=== PATIENT | male | born 1965 | race Caucasian/White ===

== ENCOUNTER → 2016-03-23 | Day surgery (SDC) | payer BC, OTHER ==
[~2016-03-23] MED LIST: Buffered Lidocaine 1% SYR 3ML* 3 ML/SYR SYRINGE INTRADERM ONE; Buffered Lidocaine 1% SYR 3ML* 3 ML/SYR SYRINGE ONE; DiMENhydriNATE IV* 50 MG/ML VIAL IV PUSH PRN; HYDROcodone/ACETAMIN 5-325 MG* 1 TAB PO PRN; Lidocaine 1% INJ* 10 MG/ML 30 ML SDV ONE; Midazolam* 1 MG/ML 5 ML VIAL (5 MG) ONE; Ondansetron INJ* 2 MG/ML VIAL IV PRN; Propofol* 10 MG/ML 20 ML BTL IV PUSH ONE; fentaNYL* 50 MCG/ML 2 ML VIAL (100 MCG VIAL) IV PRN; fentaNYL* 50 MCG/ML 2 ML VIAL (100 MCG VIAL) ONE; oxyCODONE TAB* 5 MG TAB PO PRN
[2016-03-23 16:21] VITALS: BP 119/67
--- NOTE | 2016-03-24 02:27 | OP ---
DATE OF OPERATION: 03/23/16 [facility] DATE OF : 61 SURGEON: Dr. Suarez. DATABASE TECHNICIAN: LIZETT Larson ANESTHESIOLOGIST: Edgar Jack MD ANESTHESIA: Local MAC. PRE-OP DIAGNOSES: 1. Right carpal tunnel syndrome. 2. Right trigger thumb. 3. Right small finger trigger finger. POST-OP DIAGNOSIS: 1. Right carpal tunnel syndrome. 2. Right trigger thumb. 3. Right small finger trigger finger. OPERATIVE PROCEDURE: 1. Right small finger trigger release. 2. Right trigger thumb release. 3. Right carpal tunnel release. ESTIMATED BLOOD LOSS: Zero. TOURNIQUET TIME: About 15 minutes. INDICATIONS FOR PROCEDURE: Ismael is a 51-year-old who has numbness and tingling in the median nerve distribution of his right hand. He previously had a left carpal tunnel release with very good result. He also has trigger and locking of his right thumb and small finger and presents for release of these trigger fingers. DESCRIPTION OF PROCEDURE: The patient was brought to the operating room, was given a sedation anesthetic and a local infiltration of total of 20 cc of 1% plain lidocaine in the palm of his right hand. The skin of his right hand and forearm was prepped and dapped in the usual sterile fashion. The hand and forearm were exsanguinated and the tourniquet elevated to 250 mmHg. A transverse incision was made centered over the A1 anastasia of the right small finger. We dissected bluntly through the subcutaneous tissue. The digital neurovascular bundles were retracted and the A1 anastasia was incised longitudinally completely releasing the tendons, which were in good condition. The wound was irrigated and skin edges reapproximated with a 4-0 nylon suture. Next, a transverse incision was made centered over the A1 anastasia of the right thumb. We dissected bluntly through the subcutaneous tissue. The digital neurovascular bundles were retracted and the A1 anastasia incised longitudinally completely releasing the FPL tendon, which was in good condition. The wound was irrigated and skin edges reapproximated with 4-0 nylon suture. Next, a longitudinal incision was made in the palm in line with the ring finger. We dissected sharply through the subcutaneous tissue down to the transverse carpal ligament. The ligament was divided sharply with the knife and then more proximally with the scissors. The nerve was dissected free from the surrounding tissue and there was an area of moderate compression on the mid portion of the ligament. The wound was irrigated and skin edges reapproximated with 4-0 nylon suture. The wounds were dressed with Xeroform, 4x4, Webril, and an Alberto wrap. The patient tolerated the procedure well and was brought to the recovery room in good condition. [id number]/[facility] #: [id number] MTDD
== END | disposition home or self-care (01) ==
LOC: OREAST 12:32
PROVIDERS: ATTEND Orthopaedic Surgery
DX: G56.01 Carpal tunnel syndrome, right upper limb (principal); M65.311 Trigger thumb, right thumb; M65.351 Trigger finger, right little finger; F17.200 Nicotine dependence, unspecified, uncomplicated; Z85.07 Personal history of malignant neoplasm of pancreas; Z79.891 Long term (current) use of opiate analgesic
CPT/HCPCS: J2250; J2704; J3010

== ENCOUNTER → 2016-06-23 09:35 | Day surgery (SDC) | payer BC ==
[~2016-06-23 09:35] MED LIST changes: +Acetaminophen TAB* 325 MG PO PRN; -Buffered Lidocaine 1% SYR 3ML* 3 ML/SYR SYRINGE INTRADERM ONE; -Buffered Lidocaine 1% SYR 3ML* 3 ML/SYR SYRINGE ONE; +Buffered Lidocaine 1% SYRIN* 3 ML/SYR SYRINGE INTRADERM ONE; +Dexamethasone IV* 4 MG/ML 1 ML (4 MG) ONE; +Famotidine IV* 10 MG/ML 2 ML (20 mg) ONE; +HYDROcodone/ACETAMIN 5-325 MG* 1 TAB ONE; +HYDROmorphone* 1 MG/ML 1 ML SYR IV PRN; +HYDROmorphone* 2 MG/ML 1 ML SYR ONE; +Levalbuterol 0.63MG/3ML NEB INH PRN; -Lidocaine 1% INJ* 10 MG/ML 30 ML SDV ONE; +Lidocaine 1% MPF wEPI 200,000* 30 ML SDV ONE; +Lidocaine 2% PF* 5 ML VIAL ONE; +Midazolam* 1 MG/ML 2 ML VIAL (2 MG) ONE; -Midazolam* 1 MG/ML 5 ML VIAL (5 MG) ONE; +NS 0.9% 1000 ML* 1,000 ML IV SCH; +PROCHLORPERAZINE INJ 5 MG/ML 2 ML VIAL IV PRN; +Rocuronium* 10 MG/ML VIAL ONE; +ceFAZolin 1 GM in Dextrose (*) 1 GM/50 ML BAG IVPB ONE; -fentaNYL* 50 MCG/ML 2 ML VIAL (100 MCG VIAL) IV PRN; -fentaNYL* 50 MCG/ML 2 ML VIAL (100 MCG VIAL) ONE; +metroNIDAZOLE IV 500 MG/100ML* 500 MG/100 ML BAG IVPB ONE; -oxyCODONE TAB* 5 MG TAB PO PRN
[2016-06-23 13:53] VITALS: BP 129/68
--- NOTE | 2016-06-24 03:00 | OP ---
DATE OF OPERATION: 06/23/16 [facility] DATE OF : 61 SURGEON: Krishna Andrew MD WOODWORKING BENCH CARPENTER: Triston Kumar MD ANESTHESIOLOGIST: Dr. Bond ANESTHESIA: General endotracheal anesthesia. PRE-OP DIAGNOSIS: Metastatic cancer under the left neck. POST-OP DIAGNOSIS: Metastatic cancer under the left neck. OPERATIVE PROCEDURE: Excision of the left neck cancer with a deep dissection. COMPLICATIONS: None. DISPOSITION: Good. ESTIMATED BLOOD LOSS: Minimum. SPECIMEN: Left neck mass and then we did a superior muscle margin. DESCRIPTION OF PROCEDURE: The patient was taken to the operating room, placed in a supine position on the operating table, general anesthesia induced, and he was orotracheally intubated. Head was extended. The cancer was deep lower neck over the anterior border of the trapezius muscle. The incision was demarcated and injected with 1% lidocaine with 1:200,000 epinephrine. He was prepped with Betadine and draped in a sterile fashion. The incision was made to the skin. We did a systematic dissection around the cancer. It was nondescript and appeared to be invading some muscle, which was the anterior border of the trapezius. The spinal accessory nerve was found at its lateral portion and dissected inferiorly and posteriorly preserving it. We went inferiorly around the cancer exposing the omohyoid muscle, came over the omohyoid muscle anteriorly to the internal jugular vein, brought the specimen off the internal jugular vein down on to the floor of the neck posteriorly. We had to resect some of the trapezius muscle with the specimen and we were able to remove it by doing dissection with either cautery bipolar or the ligature with tying vessels as needed. This was sent in formalin. There was a firm spot in the muscle just superior to the dissection, which might have just been from the ligature, but we decided to take a piece of this for margin as well. Hemostasis was ensured and it was irrigated with copious normal saline. The skin was closed with 3-0 Polysorb deep dermal sutures and a 4-0 Vicryl Rapide running subcuticularly, Mastisol, and Steri-Strips. The patient tolerated the procedure well. No complications. Transferred to recovery room in stable condition. [id number]/[facility] #: [id number] [facility]
== END | disposition home or self-care (01) ==
LOC: OR 09:35
PROVIDERS: ATTEND Otolaryngology
DX: C49.0 Malignant neoplasm of connective and soft tissue of head, face and neck (principal); F17.210 Nicotine dependence, cigarettes, uncomplicated; K22.70 Barrett's esophagus without dysplasia; C25.9 Malignant neoplasm of pancreas, unspecified
CPT/HCPCS: 88305; 88307; J0690; J1100; J1170; J2001; J2250; J2704

== ENCOUNTER 2016-07-23 10:51 | Day surgery (SDC) | payer BC, OTHER ==
--- NOTE | 2016-07-08 16:45 | HP ---
DICTATION ENDS ABRUPTLY ADMISSION HISTORY AND PHYSICAL: DATE OF ADMISSION: 07/20/16 CHIEF COMPLAINT: Abdominal pain. HISTORY OF PRESENT ILLNESS: Mr. Sandhu is a pleasant 51-year-old gentleman who unfortunately was diagnosed with metastatic pancreatic cancer last year. The patient had had multiple labs. DICTATION ENDS ABRUPTLY [facility] LIZETT SERVIN [id number]/[facility] #: [id number] MTDD
--- NOTE | 2016-07-08 17:27 | HP ---
ADMISSION HISTORY AND PHYSICAL: DATE OF ADMISSION: 07/20/16 ATTENDING PHYSICIAN: Dr. Bynum (DICTATED BY LIZETT REYES) CHIEF COMPLAINT: Abdominal pain. HISTORY OF PRESENT ILLNESS: Mr. Sandhu is a pleasant 51-year-old gentleman who has been seen in the office for the past few weeks for evaluation of abdominal pain. This unfortunate middle-age gentleman was recently diagnosed last year with metastatic pancreatic cancer with a tumor mets to the liver as well as squamous cell carcinoma of the left neck that was recently resected by Dr. Andrew back in May of this year. The patient also has history of Maxwell syndrome who presented to the office for evaluation of abdominal pain. The patient reports that his abdominal pain actually precedes his diagnosis of pancreatic cancer and he recalls the initial onset of the symptoms back in late summer of 2013. The patient described it as multiple episodes of abdominal pain , usually starts on the left upper quadrant and eventually radiates to the entire abdomen, getting worse as the day proceeds to the point frequently reached 10/10 for intensity. The patient had multiple GI evaluations by Dr. Lpoez including colonoscopy and upper endoscopy as well as multiple CT scans of the chest, abdomen, and pelvis most recently in April of this year. All these diagnostic imaging failed to describe a clear etiology of his abdominal pain. Given his ongoing metastatic pancreatic cancer, the patient has been treated by Dr. Colon and he has done actually well taking p.o. chemotherapy medication at this point. He was recently diagnosed with squamous cell carcinoma of the left neck that he thinks it could be probably a metastasis from prior skin lesion excision 7 years ago. As mentioned above, the patient notes general episodes of pain that used to be once a month, but now has gotten more frequent. Pain pattern typically starts in the left upper quadrant and usually starts early in the morning and intensifies as the day goes. Recently, he has been experiencing multiple episodes of nausea and vomiting with association with the pain. He had multiple emergency room visits, most recently in February of last year due to his abdominal pain. He had repeated upper endoscopy by Dr. Lopez that revealed some erosive esophagitis in April for which he has been maintained on proton pump inhibitors with no significant relief of his pain. Most recently , the patient notes that pain has become more frequent and usually gets better after he eats. He has noticed no changes in his bowel habits recently as well. Given his ongoing symptoms of abdominal pain, the patient was seen by Dr. Bynum earlier this week and the decision was made for him to have a diagnostic laparoscopy for further evaluation of unspecified abdominal pain of unclear etiology. The patient does understand given his known history of pancreatic cancer that there could be possibility of partial small bowel obstruction given his cancer history or possibility of adhesions as well. He returns to the office today for preop evaluation and to discuss surgery that it will be scheduled 2 weeks from today. PAST MEDICAL HISTORY: In addition to pancreatic cancer, patient has history of squamous cell carcinoma excised from the left neck last month. He also has history of GERD and an anxiety. PAST SURGICAL HISTORY: Significant for bilateral rotator cuff repair back in 2006 and 2008. He also has history of appendectomy, hernia repair as well as bilateral carpal tunnel release last year. CURRENT MEDICATIONS: His medications at home include: 1. Compazine 10 mg by mouth every 6 hours as needed for nausea. 2. OxyContin 10 mg 1 tablet b.i.d. 3. Creon 24,000 units 1 p.o. with each meal. 4. Diazepam 10 mg tablet by mouth as needed for an anxiety. 5. Imodium 10 mg once 3 times daily as needed for diarrhea. 6. Lynparza 50 mg 8 capsules p.o. b.i.d. 7. Citalopram 20 mg one tablet daily. ALLERGIES: He is allergic to RELAFEN. FAMILY HISTORY: Significant for coronary artery disease and breast cancer on his mother's side. He denies any family history of pancreatic or colorectal malignancies. SOCIAL HISTORY: The patient is a current smoker, who smokes on average 1 pack per day. He denies alcohol intake and caffeine intake is minimal. He is active , medically retired and enjoys hunting and cutting [employer]. REVIEW OF SYSTEM: See HPI, otherwise negative. He denies any headache, dizziness, syncope, or blurred vision. No chest pain or palpitations. He admits to occasional cough and shortness of breath on exertion, but denies any hemoptysis or orthopnea. He admits to abdominal pain in the pattern described above with associated nausea and vomiting, but denies any recent changes in the bowel habits, jaundice, or bleeding per rectum. No dysuria, hematuria, flank pain, or urinary frequency. No fever, chills, or recent significant weight changes. PHYSICAL EXAMINATION GENERAL: He is a pleasant 51-year-old gentleman appears comfortable and in no acute distress or discomfort at the time of this admission. VITAL SIGNS: His vitals today revealed blood pressure of 126/62, pulse of 74, respirations of 16, temperature of 98.2. He weighs 152 on a 71 inch frame with BMI of 21.2. HEENT: Sclerae anicteric. PERRLA. EOMs is intact. Oropharynx is pink and moist with no exudate. NECK: Supple. Trachea midline. There is a well-healed left supraclavicular incision from prior squamous cell carcinoma resection noted. There are multiple cervical slightly enlarged lymph nodes noted, nontender on exam. Thyroid gland appears normal on palpation. Trachea is midline. LUNGS: Clear to auscultation bilaterally. There are no rales, wheezes, or rhonchi. HEART: Regular rate and rhythm. Normal S1 and S2 without rubs, murmurs, or gallops. BACK: Normal curvature. No CVA tenderness. ABDOMEN: Soft, nontender and nondistended. There are no hernias, masses, or hepatosplenomegaly noted. No guarding, rigidity, or rebound tenderness. NEUROLOGIC: Grossly intact. RECTAL: Deferred at this time. ACCESSORY DIAGNOSTIC DATA: The patient is scheduled to have a chest x-ray given his longstanding history of smoking for the past 30 years as well as recent changes regarding productive cough and dyspnea on exertion. He had an EKG back on June 14, we will use that for preop admission without the need to repeat it. We will also check baseline laboratory workup in anticipation for his surgery. IMPRESSION: A 51-year-old gentleman with recurrent intermittent abdominal pain with associated nausea and vomiting and known history of metastatic pancreatic carcinoma. PLAN: As mentioned above, the patient will be scheduled for a diagnostic laparoscopy with Dr. Bynum. The surgery is scheduled on 07/20/16. I discussed with the patient all the possibilities that might involve his surgery including possibility for an open laparotomy, bowel resection, or even ileostomy or colostomy if resection was needed due to tumor invasion. We also suspect that the patient might have some intermittent bowel obstruction, probably in accounts to adhesions. At this point, we will probably keep him for observation overnight after surgery depending on the findings intraoperatively. The patient understands the risks and benefits of surgery that we went on in details during this visit. Risks include but not limited to infection, bleeding, or injury to the adjacent structures. He seems to understand and wishes to proceed as outlined. We will follow him up accordingly. LIZETT REYES CC: Dr. Cornelius Colon; Dr. Lopez; Dr. Suarez * [id number]/[facility] #: [id number] [facility]ENT[facility]osalee
[~2016-07-23 10:51] MED LIST changes: -Acetaminophen TAB* 325 MG PO PRN; +Atracurium* 10 MG/ML 10 ML VIAL ONE; +Buffered Lidocaine 1% SYR 3ML* 3 ML/SYR SYRINGE INTRADERM ONE; -Buffered Lidocaine 1% SYRIN* 3 ML/SYR SYRINGE INTRADERM ONE; -DiMENhydriNATE IV* 50 MG/ML VIAL IV PUSH PRN; +Famotidine IV* 10 MG/ML 2 ML (20 mg) IV ONE; -HYDROcodone/ACETAMIN 5-325 MG* 1 TAB ONE; -HYDROcodone/ACETAMIN 5-325 MG* 1 TAB PO PRN; -HYDROmorphone* 1 MG/ML 1 ML SYR IV PRN; -HYDROmorphone* 2 MG/ML 1 ML SYR ONE; +Ketorolac INJ* 30 MG/ML 1 ML VIAL ONE; -Levalbuterol 0.63MG/3ML NEB INH PRN; -Lidocaine 1% MPF wEPI 200,000* 30 ML SDV ONE; +Lidocaine 2% PF * 5 ML VIAL ONE; -Lidocaine 2% PF* 5 ML VIAL ONE; -Midazolam* 1 MG/ML 2 ML VIAL (2 MG) ONE; +Midazolam* 1 MG/ML 5 ML VIAL (5 MG) ONE; -NS 0.9% 1000 ML* 1,000 ML IV SCH; -Ondansetron INJ* 2 MG/ML VIAL IV PRN; +Ondansetron INJ* 2 MG/ML VIAL ONE; -PROCHLORPERAZINE INJ 5 MG/ML 2 ML VIAL IV PRN; -Rocuronium* 10 MG/ML VIAL ONE; -ceFAZolin 1 GM in Dextrose (*) 1 GM/50 ML BAG IVPB ONE; +ceFAZolin 2 GM PREMIX(*) 2 GM/50 ML BAG IVPB ONE; +fentaNYL* 50 MCG/ML 2 ML VIAL (100 MCG VIAL) ONE; -metroNIDAZOLE IV 500 MG/100ML* 500 MG/100 ML BAG IVPB ONE
[2016-07-23] MEDS ORDERED: Bupivacaine 0.5% W/EPI SDV* 30 ML VIAL ONE (11:15)
[2016-07-23] MEDS ORDERED: HYDROmorphone* 1 MG/ML 1 ML SYR ONE (13:25)
[2016-07-23] MEDS ORDERED: oxyCODONE/Acetamin 5/325 MG* TAB PO PRN (13:45)
[2016-07-23] MEDS ORDERED: DiMENhydriNATE IV* 50 MG/ML VIAL IV PUSH PRN (13:47)
[2016-07-23] MEDS ORDERED: HYDROmorphone* 1 MG/ML 1 ML SYR IV PRN (13:47)
[2016-07-23] MEDS ORDERED: oxyCODONE TAB* 5 MG TAB PO PRN (13:47)
[2016-07-23 15:20] VITALS: BP 113/82
--- NOTE | 2016-07-24 14:31 | OP ---
DATE OF OPERATION: 07/23/16 [facility] DATE OF : 61 SURGEON: Blayne Bynum MD. TYRE FITTER: LIZETT Castaneda. ANESTHESIOLOGIST: Dr. Snowden. ANESTHESIA: General endotracheal. PRE-OP DIAGNOSIS: Abdominal pain, pancreatic cancer. POST-OP DIAGNOSIS: Abdominal pain, pancreatic cancer. OPERATIVE PROCEDURE: Diagnostic laparoscopy. ESTIMATED BLOOD LOSS: Minimal. SPECIMEN: None. DRAINS: None. COMPLICATIONS: None. COUNTS: Instrument, needle, and sponge counts were correct. DESCRIPTION OF PROCEDURE: The patient was brought to the operating room, placed on the table supine. Sequential compression devices were placed on both lower extremities. General anesthesia was administered. The abdomen was prepped and draped in the usual sterile fashion. A time-out was performed. Local anesthetic was infiltrated into the skin and soft tissue prior to making each incision. Entry to the abdomen was through an infraumbilical incision using an open technique. After accessing the peritoneal cavity with a 5-mm optical trocar, carbon dioxide was insufflated to a pressure of 15 mmHg. Under direct visualization, 5-mm trocars were placed in the right upper quadrant and left lower quadrant. Inspection of the upper abdomen revealed normal-appearing left and right lobes of the liver except for some small hemangiomas noted in the right lobe of the liver. There is no evidence of peritoneal disease. Elevation of the left and right lobes of the liver revealed no evidence of disease on the peritoneal surfaces there. The gallbladder appeared normal. The anterior stomach appeared normal and the fifth portion of the duodenum actively visualized. The visualization of the pancreas with the lesser omentum revealed some fullness in the midbody of the pancreas, but no obvious masses otherwise. The small bowel was run from the ligament of Treitz distally to the ileocecal valve and no abnormalities were noted. The large intestine was clearly examined from the rectum proximally to the sigmoid colon, descending colon, splenic flexure, transverse colon, ascending colon, and the cecum and all surfaces appeared appeared normal. At this point, it was decided to conclude the operation. The ports were removed under direct visualization, carbon dioxide was released. The incisions were closed with 4-0 Monocryl in subcuticular fashion. Steri-Strips were applied. The patient tolerated the procedure well, was extubated and transferred to recovery room in stable condition. [id number]/[facility] #: [id number] ELSYD
== END 2016-07-23 15:29 | disposition home or self-care (01) ==
LOC: OR 10:51
PROVIDERS: ATTEND Surgery
DX: R10.9 Unspecified abdominal pain (principal); C25.8 Malignant neoplasm of overlapping sites of pancreas; Z72.0 Tobacco use; K21.0 Gastro-esophageal reflux disease with esophagitis
CPT/HCPCS: J0690; J1100; J1170; J1885; J2250; J2405; J2704; J3010

== ENCOUNTER 2016-10-11 12:57 | Observation (INO) | payer BC ==
[2016-10-11] MEDS ORDERED: Naloxone* 0.4 MG/ML 1 ML VIAL IV ONE (13:04)
[2016-10-11] MEDS ORDERED: NS 0.9% 1000 ML* 1,000 ML IV ONE (13:04)
[2016-10-11] MEDS ORDERED: Naloxone* 0.4 MG/ML 1 ML VIAL ONE (13:07)
[2016-10-11 14:13] LABS: Urine Bilirubin Negative (Negative); Urine Glucose Negative (Negative); Urine Nitrite Negative (Negative)
[2016-10-11 14:17] LABS: Hematocrit 42 % (42-52); Hemoglobin 13.5 g/dl (14.0-18.0); Mean Corpuscular HGB Conc 33 g/dl (31-36); Mean Corpuscular Hemoglobin 32 pg (27-31); Mean Corpuscular Volume 99 fL (80-94); Mean Platelet Volume 8 um3 (7.4-10.4); Red Cell Distribution Width 15 % (10.5-15); White Blood Count 12.7 10^3/ul (3.5-10.8)
[2016-10-11 14:36] LABS: ALT 16 U/L (7-52); AST 21 U/L (13-39); Albumin 3.9 g/dL (3.2-5.2); Alkaline Phosphatase 82 U/L (34-104); Anion Gap 6 mmol/L (2-11); Blood Urea Nitrogen 12 mg/dL (6-24); CO2 Carbon Dioxide 24 mmol/L (22-32); Chloride 102 mmol/L (101-111); EGFR African American 110.7 (>60); EGFR Non-African American 86.1 (>60); Globulin 2.6 g/dL (2-4); Glucose 135 mg/dL (70-100); Potassium 3.9 mmol/L (3.5-5.0); Sodium 132 mmol/L (133-145); Total Protein 6.5 g/dL (6.4-8.9)
[2016-10-11] MEDS ORDERED: Haloperidol INJ IV/IM* 5 MG/ML AMP IV SLOW PU PRN (15:46)
[2016-10-11] MEDS ORDERED: Iohexol 300* (CONTRAST) 10 ML SDV IV ONE (15:54)
[2016-10-11] MEDS ORDERED: Morphine INJ* 2 MG/ML 1 ML SYRINGE IV PRN (16:13)
--- NOTE | 2016-10-11 16:43 | RAD ---
INDICATION: Altered mental status. Pancreatic cancer. COMPARISON: None TECHNIQUE: Noncontrast and contrast-enhanced (75 mL Omnipaque 300) axial source images were acquired from the skull base to the vertex. This examination is mildly limited due to motion artifact. Multiple sequences were repeated. FINDINGS: Ventricles/sulci: The ventricles and cisterns are normal in size and configuration for age. Brain parenchyma: There is no focal parenchymal finding, evidence of intracranial mass, or intracranial mass effect. There is no abnormal enhancement. Intracranial hemorrhage:None. Extra-axial spaces: There are no abnormal extra axial fluid collections or evidence of extra-axial mass. Calvarium: There is no calvarial fracture or other calvarial abnormality. Scalp: There is no evidence of scalp or extracalvarial soft tissue abnormality. Paranasal sinuses/mastoid: The paranasal sinuses and mastoid air cells are clear. Other: None. IMPRESSION: Mildly Limited examination due to motion artifact. No specific CT abnormalities.
[2016-10-11] MEDS: NS 0.9% 1000 ML* 1,000 ML IV SCH (17:25)
[2016-10-11 17:57] LABS: Acetaminophen < 15 mcg/mL; Alcohol < 10 mg/dL (<10); Salicylate < 2.50 mg/dL (<30)
[2016-10-11 18:26] LABS: Benzodiazepine Urine Screen None Detected (None Detect)
[2016-10-11] MEDS: PANCRELIPASE 24000 UNIT PO SCH (20:10)
[2016-10-11] MEDS: Heparin VIAL(*) 5000 UNITS/ML VIAL (FIVE THOUSAND) SUBCUT SCH (21:26)
--- NOTE | 2016-10-11 21:51 | ED ---
I, Oh,Soohyun, scribed for Curtis Gordon MD on 10/11/16 at 1336 . Substance Abuse/Use - HPI Summary HPI Summary: LEVEL 5 CAVEAT secondary to AMS This 51 y/o male presents to ED for possible accidental OD on pain medication after being found drowsy and altered by family members today. Family members reports pt being disoriented, fidgety, and saying things "that are not there". Pt does admit that he usually takes 2 OxyContin morning and other pain medications. present at bedside does admit that pt did overuse today due to increased abd pain today. PMHx includes known pancreatic CA, GERD, erosive esophagitis. - History Of Current Complaint Chief Complaint: EDOverdose Stated Complaint: AMS POSSIBLE OVERDOSE Time Seen by Provider: 10/11/16 13:13 Hx Obtained From: Patient, Family/Regional Operations Manager, Medical Records Overdose Characteristics: Oral Character: Anxious Aggravating Factor(s): Nothing Alleviating Factor(s): Nothing Associated Signs And Symptoms: Hallucinating, Altered Mental Status, Intentional Ingestion - Allergies/Home Medications Allergies/Adverse Reactions: Allergies Allergy/AdvReac Type Severity Reaction Status Date / Time Nabumetone [From Relafen] Allergy Intermediate Hives Verified 07/23/16 10:58 PMH/Surg Hx/FS Hx/Imm Hx Endocrine/Hematology History: Denies: Hx Diabetes, Hx Systemic Lupus Erythematosus, Hx Thyroid Disease Cardiovascular History: Denies: Hx Congestive Heart Failure, Hx Hypertension Respiratory History: Denies: Hx Asthma, Hx Chronic Obstructive Pulmonary Disease (COPD) GI History: Reports: Hx Gastroesophageal Reflux Disease - daily med, Hx Irritable Bowel - recent dx (may be r/t anxiety per md), Other GI Disorders - PANCREATIC CANCER Denies: Hx Ulcer History: Denies: Hx Dialysis, Hx Renal Disease Musculoskeletal History: Reports: Hx Tendonitis - BILATERAL ELBOWS - some improvement Denies: Hx Rheumatoid Arthritis Sensory History: Reports: Hx Contacts or Glasses - READING GLASSES Denies: Hx Cataracts, Hx Glaucoma, Hx Hearing Aid Opthamlomology History: Reports: Hx Contacts or Glasses - READING GLASSES Denies: Hx Cataracts, Hx Glaucoma Neurological History: Reports: Hx Nerve Disease - 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 Inguinal hernia repair 1999,. bilateral shoulder surgery 2006 & 2008,. Thumb repair right 1979,. liver biopsy 10/2014 @ [facility],. POWER PORT PLACEMENT 2014 ;. COLONOSCOPY 2008; ENDOSCOPE 6[address]36 WITH [address] [facility] DR SWANSON; PROCEDURE TO REMOVE SKIN CANCER. left carpal tunnel surgery 02/2016 Hx Anesthesia Reactions: No Infectious Disease History: Denies: Hx Hepatitis, Hx Human Immunodeficiency Virus (HIV), Traveled Outside the [place] in Last 30 Days - Family History Known Family History: Positive: Other - Positive adverse reaction to anesthesia -- ileac condition - Social History Alcohol Use: None Hx Substance Use: Yes Substance Use Type: Reports: None, Marijuana Substance Use Comment - Amount & Last Used: MEDICAL MARIJUANA - NOT USED FOR A WHILE Hx Tobacco Use: Yes Smoking Status (MU): Light Every Day Tobacco Smoker Type: Cigarettes Amount Used/How Often: 1/2 A DAY Length of Time of Smoking/Using Tobacco: 30 Have You Smoked in the Last Year: Yes Review of Systems - ROS Summary Review of Systems Summary: LEVEL 5 CAVEAT secondary to AMS Negative: Fever Positive: Anxious, Other - Possible OD All Other Systems Reviewed And Are Negative: No Physical Exam Vital Signs On Initial Exam: Initial Vitals Temp Pulse Resp BP Pulse Ox 97.3 F 83 14 150/75 93 10/11/16 12:59 10/11/16 12:59 10/11/16 12:59 10/11/16 12:59 10/11/16 12:59 Eyes: Positive: Other: - 1 mm pupils Cardiovascular: Positive: RRR, Pulses are Symmetrical in both Upper and Lower Extremities Abdomen Description: Positive: Other: - Mild epigastric tenderness Musculoskeletal: Positive: Normal Neurological: Positive: Sensory/Motor Intact, Disoriented Psychiatric: Positive: Other - Restless. Falls asleep easily. Diagnostics - Vital Signs Vital Signs Temp Pulse Resp BP Pulse Ox 10/11/16 13:13 97.9 F 70 18 140/89 99 10/11/16 12:59 97.3 F 83 14 150/75 93 - Laboratory Lab Results: Lab Results 10/11/16 10/11/16 10/11/16 Range/Units 13:57 14:02 14:02 WBC 12.7 H (3.5-10.8) 10^3/ul RBC 4.20 (4.0-5.4) 10^6/ul Hgb 13.5 L (14.0-18.0) g/dl Hct 42 (42-52) % MCV 99 H (80-94) fL MCH 32 H (27-31) pg MCHC 33 (31-36) g/dl RDW 15 (10.5-15) % Plt Count 193 (150-450) 10^3/ul MPV 8 (7.4-10.4) um3 Neut % (Auto) 93.1 H (38-83) % Lymph % (Auto) 4.1 L (25-47) % [place]qu[place] % (Auto) 2.3 (1-9) % Eos % (Auto) 0 (0-6) % Baso % (Auto) 0.5 (0-2) % Absolute Neuts (auto) 11.8 H (1.5-7.7) 10^3/ul Absolute Lymphs (auto) 0.5 L (1.0-4.8) 10^3/ul Absolute Monos (auto) 0.3 (0-0.8) 10^3/ul Absolute Eos (auto) 0 (0-0.6) 10^3/ul Absolute Basos (auto) 0.1 (0-0.2) 10^3/ul Absolute Nucleated RBC 0 10^3/ul Nucleated RBC % 0 Sodium 132 L (133-145) mmol/L Potassium 3.9 (3.5-5.0) mmol/L Chloride 102 (101-111) mmol/L Carbon Dioxide 24 (22-32) mmol/L Anion Gap 6 (2-11) mmol/L BUN 12 (6-24) mg/dL Creatinine 0.92 (0.67-1.17) mg/dL Est GFR ( Amer) 110.7 (>60) Est GFR (Non-Af Amer) 86.1 (>60) BUN/Creatinine Ratio 13.0 (8-20) Glucose 135 H (70-100) mg/dL Lactic Acid (0.5-2.0) mmol/L Calcium 9.0 (8.6-10.3) mg/dL Total Bilirubin 0.50 (0.2-1.0) mg/dL AST 21 (13-39) U/L ALT 16 (7-52) U/L Alkaline Phosphatase 82 (34-104) U/L Total Protein 6.5 (6.4-8.9) g/dL Albumin 3.9 (3.2-5.2) g/dL Globulin 2.6 (2-4) g/dL Albumin/Globulin Ratio 1.5 (1-3) Urine Color Yellow Urine Appearance Clear Urine pH 5.0 (5-9) Ur Specific Currie 1.017 (1.010-1.030) Urine Protein Negative (Negative) Urine Ketones Negative (Negative) Urine Blood Negative (Negative) Urine Nitrate Negative (Negative) Urine Bilirubin Negative (Negative) Urine Urobilinogen Negative (Negative) Ur Leukocyte Esterase Negative (Negative) Urine Glucose Negative (Negative) Urine Ascorbic Acid * H (Negative) Salicylates < 2.50 (<30) mg/dL Acetaminophen < 15 mcg/mL Serum Alcohol < 10 (<10) mg/dL 10/11/16 Range/Units 14:02 WBC (3.5-10.8) 10^3/ul RBC (4.0-5.4) 10^6/ul Hgb (14.0-18.0) g/dl Hct (42-52) % MCV (80-94) fL MCH (27-31) pg MCHC (31-36) g/dl RDW (10.5-15) % Plt Count (150-450) 10^3/ul MPV (7.4-10.4) um3 Neut % (Auto) (38-83) % Lymph % (Auto) (25-47) % [place]quitt % (Auto) (1-9) % Eos % (Auto) (0-6) % Baso % (Auto) (0-2) % Absolute Neuts (auto) (1.5-7.7) 10^3/ul Absolute Lymphs (auto) (1.0-4.8) 10^3/ul Absolute Monos (auto) (0-0.8) 10^3/ul Absolute Eos (auto) (0-0.6) 10^3/ul Absolute Basos (auto) (0-0.2) 10^3/ul Absolute Nucleated RBC 10^3/ul Nucleated RBC % Sodium (133-145) mmol/L Potassium (3.5-5.0) mmol/L Chloride (101-111) mmol/L Carbon Dioxide (22-32) mmol/L Anion Gap (2-11) mmol/L BUN (6-24) mg/dL Creatinine (0.67-1.17) mg/dL Est GFR ( Amer) (>60) Est GFR (Non-Af Amer) (>60) BUN/Creatinine Ratio (8-20) Glucose (70-100) mg/dL Lactic Acid 1.0 (0.5-2.0) mmol/L Calcium (8.6-10.3) mg/dL Total Bilirubin (0.2-1.0) mg/dL AST (13-39) U/L ALT (7-52) U/L Alkaline Phosphatase (34-104) U/L Total Protein (6.4-8.9) g/dL Albumin (3.2-5.2) g/dL Globulin (2-4) g/dL Albumin/Globulin Ratio (1-3) Urine Color Urine Appearance Urine pH (5-9) Ur Specific Currie (1.010-1.030) Urine Protein (Negative) Urine Ketones (Negative) Urine Blood (Negative) Urine Nitrate (Negative) Urine Bilirubin (Negative) Urine Urobilinogen (Negative) Ur Leukocyte Esterase (Negative) Urine Glucose (Negative) Urine Ascorbic Acid (Negative) Salicylates (<30) mg/dL Acetaminophen mcg/mL Serum Alcohol (<10) mg/dL Result Diagrams: 10/11/16 14:02 10/11/16 14:02 Lab Statement: Any lab studies that have been ordered have been reviewed, and results considered in the medical decision making process. - EKG 1411 Cardiac Rate: Bradycardia - at 54 bpm Re-Evaluation - Re-Evaluation First Eval Re-Evaluation Time: 14:54 Comment: MD in room to re-evaluate pt. Second Eval Re-Evaluation Time: 15:42 Comment: MD in room to re-evaluate pt. Consultation with Dr. Bell is shared. Plan of care involving admission is discussed, and pt and family members are currently agreeable. Course/Dx - Course Course Of Treatment: Mr. Sandhu presented somewhat somnolent but fidgety. At times he was confused. His WBC was slightly elevated. This may be a combination of increased pain and too many pain medications but he is unable to be D/C'd at this time. - Diagnoses Provider Diagnoses: Confusion and disorientation - Physician Notifications Discussed Care Of Patient With: Lara Bell Time Discussed With Above Provider: 14:57 Instructed by Provider To: Admit As Inpatient Discharge - Discharge Plan Condition: Stable Disposition: ADMITTED TO [facility] The documentation as recorded by the Jonathan blackman Soohyun accurately reflects the service I personally performed and the decisions made by me, Curtis Gordon MD.
[2016-10-12] MEDS: NS 0.9% 1000 ML* 1,000 ML IV SCH (02:23)
[2016-10-12 05:48] LABS: Hematocrit 39 % (42-52); Mean Corpuscular HGB Conc 33 g/dl (31-36); Mean Corpuscular Hemoglobin 32 pg (27-31); Mean Corpuscular Volume 97 fL (80-94); Mean Platelet Volume 8 um3 (7.4-10.4); Red Blood Count 4.04 10^6/ul (4.0-5.4); Red Cell Distribution Width 15 % (10.5-15); White Blood Count 13.9 10^3/ul (3.5-10.8)
[2016-10-12 06:05] LABS: Albumin 3.7 g/dL (3.2-5.2); BUN/Creatinine Ratio 10.7 (8-20); Calcium 8.9 mg/dL (8.6-10.3); EGFR African American 122.9 (>60); EGFR Non-African American 95.6 (>60); Globulin 2.4 g/dL (2-4); Potassium 3.7 mmol/L (3.5-5.0); Total Bilirubin 0.6 mg/dL (0.2-1.0); Total Protein 6.1 g/dL (6.4-8.9)
[2016-10-12] MEDS: Heparin VIAL(*) 5000 UNITS/ML VIAL (FIVE THOUSAND) SUBCUT SCH (06:11)
[2016-10-12] MEDS ORDERED: Citalopram TAB* 20 MG PO SCH (09:00)
[2016-10-12] MEDS: PANCRELIPASE 24000 UNIT PO SCH (10:28)
[2016-10-12 10:30] VITALS: BP 118/93
--- NOTE | 2016-10-13 04:03 | DS ---
DISCHARGE SUMMARY: DATE OF ADMISSION: 10/11/16 DATE OF DISCHARGE: 10/12/16 REASON FOR ADMISSION: Confusion and delirium. HOSPITAL COURSE: Ismael Sandhu is a 51-year-old male with a history of pancreatic carcinoma with BRCA2 positive originally diagnosed in 2014. He had metastatic disease and had been treated originally with chemotherapy and then more recently switched to olaparib in August of 2015. This was held as of August of 2016 due to a progressive abdominal pain. He also has a history of squamous cell carcinoma of the left neck with no lymph node activity in the neck, but declined radiation therapy and excision and is being followed. His pain has been worse recently and he has been on both narcotics and benzodiazepines for it. Workup has ensued. He most recently had a CT scan on 09/30/16. He was due to see Dr. Colon in followup to discuss the results of CT scan today, 10/12/16 at 10:40 in the morning. The patient reports that he felt well over the weekend, took his usual pain medications, and other meds. He said that he forgot to take his OxyContin 10 mg , which is usually on a b.i.d. dosing on Tuesday evening. He woke up Tuesday morning, 10/11/16, felt some abdominal pain, but otherwise no different than his norm. In this situation, he took Ativan 0.5 mg two pills and then Compazine and then 30 minutes later, took another 2 pills of 0.5 of Ativan for a total of 2 mg in a 30-minute period. He subsequently was found by his family to be very confused, somewhat combative and somewhat lethargic. He does not remember this episode well at all. He was brought in to emergency room, seen by the emergency room physician and then later by LIZETT Lacey from our office and admitted to the ICU due to his lethargy and combativeness. He did receive one dose of Haldol while in the ICU. He subsequently has been much improved and this morning reports being feeling back to baseline. He denies taking any further additional dose of medication at home over the 24 to 48 hours prior to admission. Urine tox screen was negative including for both benzodiazepines and opioids, although he clearly reports taking these in the 24- hour period prior to admission. CT of the brain was performed on 10/11/16 and was obtained with and without contrast with limited study due to motion artifact with nonspecific abnormalities, laboratory studies without specific cause for the episode. [place] [address] [place] [address] on repeat today. H and H of 39/13. Chemistry studies with normal hepatic and renal function, ammonia level of 29 and repeat 44. Urine as noted above, had a negative toxicology screen for cannabinoids, cocaine, benzodiazepines, amphetamines, phencyclidine, barbiturates, opiates, salicylates , and acetaminophen and alcohol. Situation was discussed at length with patient and his this morning, also discussed with Dr. Colon and with the admitting provider, Claudia Lanza. It is likely this represent some type of overdose as he is feeling back completely to baseline this morning. It is unclear as to why this should have happened as he does take Ativan in general in total 2 mg dose result. The patient is being asked to eat breakfast and walk around the ICU and if he can do okay with these, he will then be discharged to home. He will miss his appointment with Dr. Colon in [place] this morning at 10:40, but we will set followup this afternoon at 3:20. DISCHARGE DIAGNOSES: 1. Delirium and confusion. 2. Abdominal pain. 3. Pancreatic carcinoma. 4. Squamous cell carcinoma and lymph node in the neck. 5. Ongoing narcotic and benzodiazepine use. DISCHARGE MEDICATIONS: Include: 1. OxyContin 15 mg b.i.d. 2. Percocet p.r.n. 3. Compazine 10 mg q.6 hours p.r.n. 4. Pancrelipase 48,000 units before meals. 5. Ativan 1 mg b.i.d. p.r.n. 6. Celexa 20 mg daily. [id number]/[facility] #: [id number] MTDD
== END 2016-10-12 11:10 | disposition home or self-care (01) | DRG 861 ==
LOC: ED 12:57 → INTOOBSV 15:48 → ICU 15:48 → OBSVTOIN 10-12 09:00 → INTOOBSV 10-12 09:00
PROVIDERS: ADMIT Internal Medicine Hematology & Oncology; ATTEND Internal Medicine Hematology & Oncology
DX: R41.0 Disorientation, unspecified (principal); R10.9 Unspecified abdominal pain; C25.0 Malignant neoplasm of head of pancreas; C77.0 Secondary and unspecified malignant neoplasm of lymph nodes of head, face and neck; C78.7 Secondary malignant neoplasm of liver and intrahepatic bile duct; C44.41 Basal cell carcinoma of skin of scalp and neck; K21.9 Gastro-esophageal reflux disease without esophagitis; K13.70 Unspecified lesions of oral mucosa; F17.210 Nicotine dependence, cigarettes, uncomplicated; Y92.009 Unspecified place in unspecified non-institutional (private) residence as the place of occurrence of the external cause; Z79.1 Long term (current) use of non-steroidal anti-inflammatories (NSAID); Z80.3 Family history of malignant neoplasm of breast; Z79.891 Long term (current) use of opiate analgesic; Z79.899 Other long term (current) drug therapy; Z88.8 Allergy status to other drugs, medicaments and biological substances
CPT/HCPCS: 36415; 70470; 80053; 80307; 80320; 80329; 81003; 82140; 83605; 85025; 87040; 87641; 93005; 96365; 96366; 96375; 99285; G0378; G0480; J1630; J1642; J1644; J2310; Q9967

== ENCOUNTER 2016-11-24 13:38 | Emergency (ER) | payer BC ==
[2016-11-24] MEDS: NS 0.9% 1000 ML* 2,000 ML IV ONE ×2 (15:26→17:22)
[2016-11-24 15:42] LABS: Urine Bilirubin Negative (Negative); Urine Glucose Negative (Negative); Urine Nitrite Negative (Negative)
[2016-11-24 15:46] LABS: Hematocrit 33 % (42-52); Hemoglobin 11.1 g/dl (14.0-18.0); Mean Corpuscular HGB Conc 34 g/dl (31-36); Mean Corpuscular Hemoglobin 32 pg (27-31); Mean Corpuscular Volume 94 fL (80-94); Mean Platelet Volume 8 um3 (7.4-10.4); Red Blood Count 3.48 10^6/ul (4.0-5.4); Red Cell Distribution Width 16 % (10.5-15); White Blood Count 5.1 10^3/ul (3.5-10.8)
[2016-11-24 15:55] LABS: ALT 13 U/L (7-52); AST 24 U/L (13-39); Albumin 4.1 g/dL (3.2-5.2); Alkaline Phosphatase 63 U/L (34-104); Amylase 47 U/L (29-103); Anion Gap 8 mmol/L (2-11); BUN/Creatinine Ratio 12.6 (8-20); Blood Urea Nitrogen 13 mg/dL (6-24); C Reactive Protein < 1.00 mg/L (< 5.00); CO2 Carbon Dioxide 24 mmol/L (22-32); Calcium 9.2 mg/dL (8.6-10.3); Chloride 104 mmol/L (101-111); EGFR African American 97.2 (>60); EGFR Non-African American 75.5 (>60); Globulin 2.1 g/dL (2-4); Glucose 124 mg/dL (70-100); Lipase 64 U/L (11.0-82.0); Potassium 3.6 mmol/L (3.5-5.0); Sodium 136 mmol/L (133-145); Total Protein 6.2 g/dL (6.4-8.9)
[2016-11-24 16:06] LABS: Iron 74 ug/dL (50-212)
[2016-11-24 16:14] LABS: TSH (Thyroid Stimulating Horm) 0.49 mcIU/mL (0.34-5.60)
[2016-11-24] MEDS ORDERED: Iohexol 300* (CONTRAST) 10 ML SDV IV ONE (16:25)
--- NOTE | 2016-11-24 16:45 | RAD ---
INDICATION: Pancreatic cancer with metastasis. NADIRA evaluation for abdominal pain COMPARISON: CT chest/abdomen/pelvis September 30, 2016 TECHNIQUE: Axial source images were obtained from the hemidiaphragms to the symphysis pubis following administration of oral and intravenous contrast. 97 mL Omnipaque 300 was utilized. Coronal and sagittal reconstructed images were acquired. Lung bases: The lung bases are clear. Liver: The liver is normal in size. There are no new masses. Low-density hepatic lesions are unchanged There is no mild intrahepatic ductal dilatation. Gallbladder: There are no calcified gallstones. There is no evidence of wall thickening or pericholecystic fluid. Spleen: The spleen is normal in size. There are no masses. Pancreas: Evaluation of pancreas is limited because the adjacent small bowel is not opacified. There is mild pancreatic ductal dilatation which appears new. Adrenal glands: There is no evidence of adrenal mass. Kidneys: The kidneys are normal in size and position. There are prompt nephrograms and there is prompt excretion bilaterally. There are no renal parenchymal masses. There is no evidence of nephrolithiasis. Adenopathy: There is periportal adenopathy with a lymph node measuring 3.2 x 2.2 cm. This is increased in size there may be several additional smaller lymph nodes. Evaluation is limited due to posterior fat planes and poor oral contrast opacification. Fluid collections: There are no free or localized fluid collections. Vessels:There are no significant atherosclerotic changes involving the aorta. There is no focal aneurysm. The iliac vessels are normal in caliber. The IVC appears normal. GI tract: There are no acute CT bowel findings. There is no obstruction. The stomach and small bowel appear normal. The lower GI tract is normal. The cecum, ileocecal valve, and terminal ileum appear normal. The appendix is visualized and appear normal. Pelvic organs: The uterus and adnexa appear normal Bladder: There are no bladder masses. Abdominal and pelvic soft tissues: The extraperitoneal abdominal and pelvic soft tissues appear normal.. Osseous structures: There are no acute osseous findings. Other: None IMPRESSION: 1. Limited study due to posterior fat planes and poor oral contrast opacification 2. New mild intra-hepatic and pancreatic ductal dilatation. 3. Stable small hepatic hypodensities. 4. Progressive peripancreatic/periportal adenopathy with a dominant 3.2 cm lymph node increased in size from approximately 2 cm
--- NOTE | 2016-11-24 18:58 | ED ---
Diaz Pelletier Angela, scribed for Galen Long MD on 11/24/16 at 1438 . Abdominal Pain/Male - HPI Summary HPI Summary: This pt is a 51 y/o male BIBA from Urgent Care accompanied by his presenting [facility] c/o abdominal pain since last night. Pt reports his pain significantly worsened late this morning. His abd pain radiates to his back. Per , they were at Dr. Colon's office and his confusion started today. He was given Zofran, Reglan, and Demerol. Pt additionally c/o chills, nausea, and vomiting. Pt denies headache, neck pain, diarrhea, bloody stools. Per , pt takes Ativan and oxycodone at home. Pt is a current smoker. - History of Current Complaint Chief Complaint: EDAbdPain Stated Complaint: ABD PAIN-SENT FROM Time Seen by Provider: 11/24/16 14:16 Hx Obtained From: Patient Onset/Duration: Lasting Days Timing: Lasting Days Pain Intensity: 3 Radiates: Yes Radiates to: Back Associated Signs And Symptoms: Positive: Back Pain, Nausea, Vomiting - Allergies/Home Medications Allergies/Adverse Reactions: Allergies Allergy/AdvReac Type Severity Reaction Status Date / Time Nabumetone [From Relafen] Allergy Intermediate Hives Verified 11/24/16 14:04 Home Medications: Home Medications Citalopram TAB* [CeleXA TAB*] 40 mg PO DAILY 11/24/16 [History Confirmed ] Diazepam TAB(*) [Valium TAB(*)] 10 mg PO BEDTIME PRN 11/24/16 [History Confirmed 11/24/16] LORazepam TAB(*) [Ativan 0.5 MG TAB (*)] 0.5 mg PO Q4H PRN 11/24/16 [History Confirmed 11/24/16] Nicotine PATCH 21 MG/24 HR* 21 mg TRANSDERM DAILY 11/24/16 [History Confirmed ] Ondansetron ODT TAB* [Zofran 4 MG Odt TAB*] 4 mg PO Q6H PRN 11/24/16 [History Confirmed 11/24/16] Oxycodone HCl [Oxycodone HCl ER 30 mg] 30 mg PO BID 11/24/16 [History Confirmed 11/24/16] Pancrelipase (NF) [Creon (NF)] 48,000 units PO TID WITH MEALS 11/24/16 [History Confirmed 11/24/16] ValACYclovir (*) [Valtrex 500 mg (*)] 500 mg PO BID PRN 11/24/16 [History Confirmed 11/24/16] oxyCODONE TAB* [Roxycodone TAB 5 mg*] 5 - 10 mg PO DAILY PRN 11/24/16 [History Confirmed 11/24/16] PMH/Surg Hx/FS Hx/Imm Hx Endocrine/Hematology History: Denies: Hx Diabetes, Hx Systemic Lupus Erythematosus, Hx Thyroid Disease Cardiovascular History: Denies: Hx Congestive Heart Failure, Hx Hypertension Respiratory History: Denies: Hx Asthma, Hx Chronic Obstructive Pulmonary Disease (COPD) GI History: Reports: Hx Gastroesophageal Reflux Disease - daily med, Hx Irritable Bowel - recent dx (may be r/t anxiety per md), Other GI Disorders - PANCREATIC CANCER Denies: Hx Ulcer History: Denies: Hx Dialysis, Hx Renal Disease Musculoskeletal History: Reports: Hx Tendonitis - BILATERAL ELBOWS - some improvement Denies: Hx Rheumatoid Arthritis Sensory History: Reports: Hx Contacts or Glasses - READING GLASSES Denies: Hx Cataracts, Hx Eye Injury, Hx Eye Prosthesis, Hx Glaucoma, Hx Legally Blind, Hx Macular Degeneration, Hx Vision Problem, Hx Deafness, Hx Hearing Aid, Hx Hearing Problem, Other Sensory Impairments Opthamlomology History: Reports: Hx Contacts or Glasses - READING GLASSES Denies: Hx Cataracts, Hx Eye Injury, Hx Eye Prosthesis, Hx Glaucoma, Hx Legally Blind, Hx Macular Degeneration, Hx Vision Problem, Other Sensory Impairments Neurological History: Reports: 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 Inguinal hernia repair 1999,. bilateral shoulder surgery 2006 & 2008,. Thumb repair right 1979,. liver biopsy 10/2014 @ [facility],. POWER PORT PLACEMENT 2014 ;. COLONOSCOPY 2008; ENDOSCOPE [id number] WITH [address] [facility] DR SWANSON; PROCEDURE TO REMOVE SKIN CANCER. left carpal tunnel surgery 02/2016 Hx Anesthesia Reactions: No Infectious Disease History: No Infectious Disease History: Denies: Hx Hepatitis, Hx Human Immunodeficiency Virus (HIV), Traveled Outside the [place] in Last 30 Days - Family History Known Family History: Positive: Other - Positive adverse reaction to anesthesia -- ileac condition - Social History Alcohol Use: None Hx Substance Use: Yes Substance Use Type: Reports: Marijuana Substance Use Comment - Amount & Last Used: MEDICAL MARIJUANA - NOT USED FOR A WHILE Hx Tobacco Use: Yes Smoking Status (MU): Light Every Day Tobacco Smoker Type: Cigarettes Amount Used/How Often: 1/2 A DAY Length of Time of Smoking/Using Tobacco: 30 Have You Smoked in the Last Year: Yes Review of Systems Negative: Fever, Chills Eyes: Negative ENT: Negative Negative: Palpitations, Chest Pain Negative: Shortness Of Breath, Cough Positive: Abdominal Pain, Vomiting, Nausea. Negative: Diarrhea Genitourinary: Negative Musculoskeletal: Negative Skin: Negative Neurological: Other - confusion All Other Systems Reviewed And Are Negative: Yes Physical Exam - Summary Physical Exam Summary: The patient is thin. Pt is confused. The skin is warm and dry. Pt looks jaundice and dehydrated. HEENT: The head is normocephalic and atraumatic. The pupils are equal and reactive. The conjunctivae are clear and without drainage. Sclera is icterus. Nares are patent and without drainage. Mouth reveals dry mucous membranes and the throat is without erythema and exudate. The external ears are intact. The ear canals are patent and without drainage. The tympanic membranes are intact. Neck is supple with full range of motion and non-tender. There are no carotid bruits. There is no neck vein distension. Respiratory: Chest is non-tender. Lungs are clear to auscultation and breath sounds are symmetrical and equal. There are no rales, crackles or rhonchi. Cardiovascular: Hear is regular rate and rhythm. There is no murmur or rub auscultated. There is no peripheral edema and pulses are symmetrical and equal. There are good pulses distally. Abdomen: The abdomen is soft and non-tender. There are no organomegaly palpated. Musculoskeletal: There is no reproducible back pain noted. Extremities are non- tender with full range of motion. There is good capillary refill. There is no peripheral edema or calf tenderness elicited. Neurological: Patient is alert and oriented to person, place and time. The patient has symmetrical motor strength in all four extremities. Psychiatric: The patient has an appropriate affect and does not exhibit any anxiety or depression. Triage Information Reviewed: Yes Vital Signs On Initial Exam: Initial Vitals BP 170/84 11/24/16 13:57 Temperature: 98.5 Pulse: 87 Respiration: 16 Oxygen: 93 Vital Signs Reviewed: Yes - [place] Coma Scale Coma Scale Total: 11 Diagnostics - Vital Signs Vital Signs Temp Pulse Resp BP Pulse Ox 11/24/16 14:01 98.5 F 50 16 147/73 99 11/24/16 14:00 62 15 147/73 92 11/24/16 13:58 87 16 93 11/24/16 13:57 170/84 - Laboratory Lab Results: Lab Results 11/24/16 11/24/16 11/24/16 Range/Units 15:20 15:20 15:20 WBC 5.1 (3.5-10.8) 10^3/ul RBC 3.48 L (4.0-5.4) 10^6/ul Hgb 11.1 L (14.0-18.0) g/dl Hct 33 L (42-52) % MCV 94 (80-94) fL MCH 32 H (27-31) pg MCHC 34 (31-36) g/dl RDW 16 H (10.5-15) % Plt Count 149 L (150-450) 10^3/ul MPV 8 (7.4-10.4) um3 Neut % (Auto) 96.6 H (38-83) % Lymph % (Auto) 2.5 L (25-47) % Sargent % (Auto) 0.6 L (1-9) % Eos % (Auto) 0 (0-6) % Baso % (Auto) 0.3 (0-2) % Absolute Neuts (auto) 4.9 (1.5-7.7) 10^3/ul Absolute Lymphs (auto) 0.1 L (1.0-4.8) 10^3/ul Absolute Monos (auto) 0 (0-0.8) 10^3/ul Absolute Eos (auto) 0 (0-0.6) 10^3/ul Absolute Basos (auto) 0 (0-0.2) 10^3/ul Absolute Nucleated RBC 0 10^3/ul Nucleated RBC % 0.1 Sodium 136 (133-145) mmol/L Potassium 3.6 (3.5-5.0) mmol/L Chloride 104 (101-111) mmol/L Carbon Dioxide 24 (22-32) mmol/L Anion Gap 8 (2-11) mmol/L BUN 13 (6-24) mg/dL Creatinine 1.03 (0.67-1.17) mg/dL Est GFR ( Amer) 97.2 (>60) Est GFR (Non-Af Amer) 75.5 (>60) BUN/Creatinine Ratio 12.6 (8-20) Glucose 124 H (70-100) mg/dL Lactic Acid 0.5 (0.5-2.0) mmol/L Calcium 9.2 (8.6-10.3) mg/dL Iron 74 (50-212) ug/dL Total Bilirubin 0.90 (0.2-1.0) mg/dL AST 24 (13-39) U/L ALT 13 (7-52) U/L Alkaline Phosphatase 63 (34-104) U/L C-Reactive Protein < 1.00 (< 5.00) mg/L Total Protein 6.2 L (6.4-8.9) g/dL Albumin 4.1 (3.2-5.2) g/dL Globulin 2.1 (2-4) g/dL Albumin/Globulin Ratio 2.0 (1-3) Amylase 47 (29-103) U/L Lipase 64 (11.0-82.0) U/L TSH 0.49 (0.34-5.60) mcIU/mL Cortisol 44.11 mcg/dL Urine Color Urine Appearance Urine pH (5-9) Ur Specific Tamms (1.010-1.030) Urine Protein (Negative) Urine Ketones (Negative) Urine Blood (Negative) Urine Nitrate (Negative) Urine Bilirubin (Negative) Urine Urobilinogen (Negative) Ur Leukocyte Esterase (Negative) Urine Glucose (Negative) Urine Ascorbic Acid (Negative) 11/24/16 Range/Units 15:20 WBC (3.5-10.8) 10^3/ul RBC (4.0-5.4) 10^6/ul Hgb (14.0-18.0) g/dl Hct (42-52) % MCV (80-94) fL MCH (27-31) pg MCHC (31-36) g/dl RDW (10.5-15) % Plt Count (150-450) 10^3/ul MPV (7.4-10.4) um3 Neut % (Auto) (38-83) % Lymph % (Auto) (25-47) % Sargent % (Auto) (1-9) % Eos % (Auto) (0-6) % Baso % (Auto) (0-2) % Absolute Neuts (auto) (1.5-7.7) 10^3/ul Absolute Lymphs (auto) (1.0-4.8) 10^3/ul Absolute Monos (auto) (0-0.8) 10^3/ul Absolute Eos (auto) (0-0.6) 10^3/ul Absolute Basos (auto) (0-0.2) 10^3/ul Absolute Nucleated RBC 10^3/ul Nucleated RBC % Sodium (133-145) mmol/L Potassium (3.5-5.0) mmol/L Chloride (101-111) mmol/L Carbon Dioxide (22-32) mmol/L Anion Gap (2-11) mmol/L BUN (6-24) mg/dL Creatinine (0.67-1.17) mg/dL Est GFR ( Amer) (>60) Est GFR (Non-Af Amer) (>60) BUN/Creatinine Ratio (8-20) Glucose (70-100) mg/dL Lactic Acid (0.5-2.0) mmol/L Calcium (8.6-10.3) mg/dL Iron (50-212) ug/dL Total Bilirubin (0.2-1.0) mg/dL AST (13-39) U/L ALT (7-52) U/L Alkaline Phosphatase (34-104) U/L C-Reactive Protein (< 5.00) mg/L Total Protein (6.4-8.9) g/dL Albumin (3.2-5.2) g/dL Globulin (2-4) g/dL Albumin/Globulin Ratio (1-3) Amylase (29-103) U/L Lipase (11.0-82.0) U/L TSH (0.34-5.60) mcIU/mL Cortisol mcg/dL Urine Color Yellow Urine Appearance Clear Urine pH 5.0 (5-9) Ur Specific Tamms 1.014 (1.010-1.030) Urine Protein Negative (Negative) Urine Ketones 2+ H (Negative) Urine Blood Negative (Negative) Urine Nitrate Negative (Negative) Urine Bilirubin Negative (Negative) Urine Urobilinogen Negative (Negative) Ur Leukocyte Esterase Negative (Negative) Urine Glucose Negative (Negative) Urine Ascorbic Acid * H (Negative) Result Diagrams: 11/24/16 15:20 11/24/16 15:20 Lab Statement: Any lab studies that have been ordered have been reviewed, and results considered in the medical decision making process. - CT Abd/Pel CT CT Interpretation: Positive (See Comments) - IMPRESSION: 1. Limited study due to posterior fat planes and poor oral contrast opacification 2. New mild intra- hepatic and pancreatic ductal dilatation. 3. Stable small hepatic hypodensities. 4. Progressive peripancreatic/periportal adenopathy with a dominant 3.2 cm lymph node increased in size from approximately 2 cm. ED physician has reviewed this radiology report and agrees. CT Interpretation Completed By: Radiologist Re-Evaluation - Re-Evaluation First Eval Re-Evaluation Time: 18:15 Comment: I discussed the CT and lab results with the pt and . The pt is no longer confused or lethargic. Pt's would like the pt to be discharged. Abdominal Pain Fem Course/Dx - Course Assessment/Plan: 51 y/o male presents to the ED c/o abdominal pain since last night, significantly worsening today. Pt has significant confusion, per , it is new today. Labs and CT abd/pel were obtained. Labs are unremarkable and images show nothing acute. In the ED course, pt was given IV fluids. CT abd/pel shows 1. New mild intra-hepatic and pancreatic ductal dilatation. 2. Stable small hepatic hypodensities. 3. Progressive peripancreatic/periportal adenopathy with a dominant 3.2 cm lymph node increased in size from approximately 2 cm. Elevated BP noted. I discussed the pt's case with Dr. Lane. He advised that if the pt is feeling better and no longer confused, he may be discharged. Dr. Lane will follow up with him in his office. Pt will be discharged. - Diagnoses Differential Diagnosis/HQI/PQRI: Bowel Obstruction, Gall Bladder Disease, Ischemic Bowel, Pancreatitis, Ureteral Stone, Other - drug reaction, dehydration Provider Diagnoses: Abdominal pain, Altered mental status, Dehydration - Provider Notifications Discussed Care Of Patient With: Edison Lane Time Discussed With Above Provider: 18:29 Instructed by Provider To: Other - I discussed the pt's case with Dr. Lane. He advised that if the pt is feeling better and no longer confused, he may be discharged. Dr. Lane will follow up with him in his office. Discharge - Discharge Plan Condition: Stable Disposition: HOME Patient Education Materials: Dehydration (ED), Abdominal Pain (ED) Referrals: Cornelius Colon MD [Primary Care Provider] - Edison Lane MD [Medical Doctor] - Additional Instructions: Please follow up with Dr. Lane in his office, either at the [facility] or at [facility]. The documentation as recorded by the Diaz blackman Angela accurately reflects the service I personally performed and the decisions made by me, Galen Long MD.
[2016-11-24 19:04] VITALS: BP 144/65
== END 2016-11-24 19:17 | disposition home or self-care (01) ==
LOC: ED 13:38
DX: R10.9 Unspecified abdominal pain (principal); R41.82 Altered mental status, unspecified; E86.0 Dehydration; M54.9 Dorsalgia, unspecified; R11.2 Nausea with vomiting, unspecified; F17.210 Nicotine dependence, cigarettes, uncomplicated
CPT/HCPCS: 36415; 74177; 80053; 81003; 82150; 82533; 83540; 83605; 83690; 84110; 84443; 85025; 86038; 86140; 96360; 99285; J1642; Q9967

== ENCOUNTER 2017-05-30 07:40 | Day surgery (SDC) | payer BC ==
[~2017-05-30 07:40] MED LIST changes: -Atracurium* 10 MG/ML 10 ML VIAL ONE; +Buffered Lidocaine 0.9% SYRIN* 5 ML/SYR SYRINGE INTRADERM ONE; -Buffered Lidocaine 1% SYR 3ML* 3 ML/SYR SYRINGE INTRADERM ONE; -Dexamethasone IV* 4 MG/ML 1 ML (4 MG) ONE; -Famotidine IV* 10 MG/ML 2 ML (20 mg) IV ONE; -Famotidine IV* 10 MG/ML 2 ML (20 mg) ONE; -Ketorolac INJ* 30 MG/ML 1 ML VIAL ONE; -Lidocaine 2% PF * 5 ML VIAL ONE; -Midazolam* 1 MG/ML 5 ML VIAL (5 MG) ONE; -Ondansetron INJ* 2 MG/ML VIAL ONE; -Propofol* 10 MG/ML 20 ML BTL IV PUSH ONE; -ceFAZolin 2 GM PREMIX(*) 2 GM/50 ML BAG IVPB ONE; -fentaNYL* 50 MCG/ML 2 ML VIAL (100 MCG VIAL) ONE
[2017-05-30] MEDS ORDERED: ceFAZolin 2 GM (*##) 2 GM/100 ML BAG USE CEFA2SOL IVPB ONE (07:46)
[2017-05-30] MEDS ORDERED: Lidocaine 1% INJ* 10 MG/ML 30 ML SDV ONE (08:09)
[2017-05-30] MEDS ORDERED: oxyCODONE/Acetamin 5/325 MG* TAB PO PRN (10:22)
[2017-05-30 11:00] VITALS: BP 143/75
--- NOTE | 2017-05-30 11:09 | RAD ---
INDICATION: Replacement of a malfunctioning right subclavian vein Mediport. COMPARISON: Most recent comparison chest x-rays dated July 08, 2016 TECHNIQUE: Single AP portable view of the chest was obtained. FINDINGS: Image quality is compromised due to the relative inferiority of a portable chest x-ray. There has been interval placement of a right internal jugular vein Mediport with the tip terminating at the superior vena cava. The superiormost portion of the catheter after it enters the vein is cut off from the [id number]. The heart and mediastinum exhibit normal size and contour. The lungs are grossly clear. There is no evidence of a large pleural effusion. Visualized bones are normal for the patient's age. IMPRESSION: Interval placement of a right internal jugular vein Mediport with the tip terminating at the superior vena cava. There is no pneumothorax.
--- NOTE | 2017-05-30 16:25 | RAD ---
INDICATION: Power port removal, PowerPort placement. COMPARISON: Comparison is made with a prior study from May 25, 2017. TECHNIQUE: 20.5 seconds of intermittent fluoroscopic guidance were provided and 5 spot films of the chest were obtained in the operating room. FINDINGS: The films demonstrate placement of a PowerPort central venous catheter on the right side. The catheter tip projects overlying the region of the superior vena cava. IMPRESSION: INTRAOPERATIVE CONTROL FILMS. CPT II Codes: 6045F
--- NOTE | 2017-05-31 09:08 | OP ---
CC: Dr. Colon. * DATE OF OPERATION: 05/30/17 - SDS DATE OF : 61. SURGEON: Gaurav Guthrie MD. ASSISTANTS: None. ANESTHESIOLOGIST: Dr. Julio. ANESTHESIA: LMAC anesthesia. PRE-OP DIAGNOSIS: Pancreatic carcinoma with failure of implanted port. POST-OP DIAGNOSIS: Pancreatic carcinoma with failure of implanted port. OPERATIVE PROCEDURE: Removal and replacement of implanted port with sono guidance and fluoroscopic guidance. DESCRIPTION OF PROCEDURE: The patient was supine on the operative table. After adequate intravenous sedation compression stockings, Vanessa Hugger warmer, and intravenous antibiotics, the chest and neck region were prepped with antiseptic, draped in a sterile fashion. Local infiltrative anesthesia was administered and the previous right subclavian incision was reentered. The port had a lot of fibrosis around the catheter and this was dissected free and the port was removed in its entirety. Approximately 5 cm at the tip of the catheter was transected and sent in a sterile container for culture. The pocket was made hemostatic with electrocautery and with pressure. Using ultrasound, the internal jugular vein was identified in the usual location and jugular venous puncture was carried out without difficulty and the guidewire was passed under fluoroscopic guidance into the superior vena cava. The catheter was passed through the peel-away introducer and tunneled out through the chest site. It was measured and cut at 30 cm attached to the port, which was suture in the pocket with 2-0 Prolene. The pocket was closed with 3-0 and 5 -0 Vicryl. 5-0 Vicryl was used to the neck incision as well followed by Steri- Strips. The port was accessed, had good blood return and it was flushed with saline and then heparinized solution. It was de-accessed and he was brought to recovery in good condition. There were no complications. No drains. Pathologic specimen was catheter tip for cultures. Sponge and instrument counts were correct. Estimated blood loss 20 mL. [id number]/[facility] #: [id number] [facility]
== END 2017-05-30 11:14 | disposition home or self-care (01) ==
LOC: OR 07:40
PROVIDERS: ATTEND Surgery
DX: T85.898A Other specified complication of other internal prosthetic devices, implants and grafts, initial encounter (principal); C25.0 Malignant neoplasm of head of pancreas; C76.0 Malignant neoplasm of head, face and neck; Z88.0 Allergy status to penicillin
CPT/HCPCS: 71045; 76001; 87071; 88300; C1788; J1642

== ENCOUNTER 2017-08-09 09:47 | Inpatient (IN) | payer BC ==
[2017-08-09] MEDS ORDERED: NS 0.9% 1000 ML* 1,000 ML IV ONE (10:23)
[2017-08-09] MEDS ORDERED: Ondansetron INJ* 2 MG/ML VIAL IV ONE (10:35)
[2017-08-09] MEDS ORDERED: Morphine INJ* 10 MG/ML 1 ML CARPUJECT IV ONE ×2 (10:35→16:12)
[2017-08-09] MEDS ORDERED: PROCHLORPERAZINE INJ 5 MG/ML 2 ML VIAL IV PRN (10:37)
[2017-08-09] MEDS ORDERED: Morphine VIAL* 4 MG/ML VIAL (1 ml vial) IV ONE ×2 (10:41→12:31)
[2017-08-09] MEDS ORDERED: PROCHLORPERAZINE INJ 5 MG/ML 2 ML VIAL ONE (10:45)
[2017-08-09] MEDS ORDERED: Iohexol 300* (CONTRAST) 10 ML SDV IV ONE (12:40)
[2017-08-09 13:02] LABS: ABS Basophils 0 10^3/ul (0-0.2); ABS Eosinophils 0 10^3/ul (0-0.6); ABS Lymphocytes 0.6 10^3/ul (1.0-4.8); ABS Monocytes 0.5 10^3/ul (0-0.8); ABS Neutrophils 7.1 10^3/ul (1.5-7.7); ABS Nucleated RBC 0 10^3/ul; Eosinophil % 0.3 % (0-6); Hematocrit 43 % (42-52); Hemoglobin 14.1 g/dl (14.0-18.0); Lymphocyte % 6.9 % (25-47); Mean Corpuscular HGB Conc 33 g/dl (31-36); Mean Corpuscular Hemoglobin 29 pg (27-31); Mean Corpuscular Volume 89 fL (80-94); Nucleated Red Blood Cells % 0.2; Platelet Count 198 10^3/ul (150-450); Red Blood Count 4.79 10^6/ul (4.0-5.4); Red Cell Distribution Width 18 % (10.5-15); White Blood Count 8.3 10^3/ul (3.5-10.8)
--- NOTE | 2017-08-09 15:27 | RAD ---
INDICATION: Abdominal pain. Pancreatic carcinoma. History of appendectomy. COMPARISON: CT chest/abdomen/pelvis May 17, 2017; CT chest/abdomen/pelvis February 28, 2017 TECHNIQUE: Axial source images were obtained from the hemidiaphragms to the symphysis pubis following administration of oral and intravenous contrast. 100 mL Omnipaque 300 was utilized. Coronal and sagittal reconstructed images were acquired. Lung bases: The lung bases are clear. Liver: The liver is normal in size. There is a 2.3 cm lesion in medial segment left hepatic lobe appearing larger. There is a stable low-density right hepatic lobe lesion which may represent a cyst. Gallbladder: There are no calcified gallstones. There is no evidence of wall thickening or pericholecystic fluid. Spleen: The spleen is normal in size. There are no masses. Pancreas: The body and tail the pancreas are atrophic. There is pancreatic ductal dilatation. There is no discrete pancreatic mass. Adrenal glands: There is no evidence of adrenal mass. Kidneys: The kidneys are normal in size and position. There are prompt nephrograms and there is prompt excretion bilaterally. There are no renal parenchymal masses. There is no evidence of nephrolithiasis. Adenopathy: There is a prominent aortocaval lymph node appearing slightly larger measuring 1.5 cm in short axis.. There are several additional tiny peripancreatic lymph nodes which are not enlarged by size criteria. Fluid collections: There are no free or localized fluid collections. Vessels:There are no significant atherosclerotic changes involving the aorta. There is no focal aneurysm. The iliac vessels are normal in caliber. The IVC appears normal. GI tract: There are mildly dilated and fluid-filled loops of small bowel in the lower abdomen. These are likely ileal loop. The colon is normal caliber. There is stool within the colon. The findings may be related to a localized ileus. Pelvic organs: The prostate and seminal vesicles appear normal Bladder: There are no bladder masses. Abdominal and pelvic soft tissues: The extraperitoneal abdominal and pelvic soft tissues appear normal.. Osseous structures: There are no acute osseous findings. Other: None IMPRESSION: 1. There is a lesion in the left hepatic lobe which appears larger than at the time of recent imaging. 2. Atrophic pancreas with dilated pancreatic duct, unchanged. 3. Enlarged aortocaval lymph node appearing slightly larger. 4. Mildly prominent small bowel loops appear fluid-filled. The findings suggest localized ileus.
[2017-08-09] MEDS ORDERED: Morphine VIAL* 4 MG/ML VIAL (1 ml vial) IV PRN (16:12)
[2017-08-09] MEDS ORDERED: LORazepam INJ* 2 MG/ML 1 ML VIAL IV PUSH PRN (16:13)
[2017-08-09] MEDS ORDERED: Prochlorperazine TAB* 10 MG PO PRN (16:22)
[2017-08-09] MEDS: Enoxaparin(*) 40 MG/0.4 ML SYR SUBCUT SCH (17:47)
[2017-08-09] MEDS: NS 0.9% 1000 ML* 1,000 ML IV SCH ×2 (18:02→23:39)
[2017-08-09] MEDS: oxyCODONE SR TAB(*) 20 MG TAB.SR PO SCH (19:28)
[2017-08-09] MEDS: Morphine VIAL* 4 MG/ML VIAL (1 ml vial) IV PRN ×2 (20:29→23:20)
[2017-08-10] MEDS: Morphine VIAL* 4 MG/ML VIAL (1 ml vial) IV PRN ×2 (03:36→05:46)
[2017-08-10] MEDS: NS 0.9% 1000 ML* 1,000 ML IV SCH ×3 (05:43→18:32)
[2017-08-10 06:00] LABS: ABS Basophils 0 10^3/ul (0-0.2); ABS Eosinophils 0 10^3/ul (0-0.6); ABS Lymphocytes 1.1 10^3/ul (1.0-4.8); ABS Monocytes 1.2 10^3/ul (0-0.8); ABS Neutrophils 6.2 10^3/ul (1.5-7.7); ABS Nucleated RBC 0 10^3/ul; Eosinophil % 0.3 % (0-6); Hematocrit 37 % (42-52); Hemoglobin 12.2 g/dl (14.0-18.0); Lymphocyte % 12.5 % (25-47); Mean Corpuscular HGB Conc 33 g/dl (31-36); Mean Corpuscular Hemoglobin 30 pg (27-31); Mean Corpuscular Volume 89 fL (80-94); Mean Platelet Volume 7.7 um3 (7.4-10.4); Nucleated Red Blood Cells % 0; Platelet Count 168 10^3/ul (150-450); Red Blood Count 4.14 10^6/ul (4.0-5.4); Red Cell Distribution Width 17 % (10.5-15); White Blood Count 8.6 10^3/ul (3.5-10.8)
[2017-08-10 06:25] LABS: EGFR Non-African American 84.7 (>60)
[2017-08-10 07:26] LABS: Urine Appearance Clear; Urine Blood 1+ (Negative); Urine Color Straw; Urine Ketones Negative (Negative); Urine Protein Negative (Negative); Urine Specific Gravity 1.008 (1.010-1.030); Urine Urobilinogen Negative (Negative)
[2017-08-10] MEDS: oxyCODONE SR TAB(*) 20 MG TAB.SR PO SCH ×3 (08:32→20:48)
[2017-08-10] MEDS: Enoxaparin(*) 40 MG/0.4 ML SYR SUBCUT SCH (16:44)
[2017-08-11] MEDS: NS 0.9% 1000 ML* 1,000 ML IV SCH (01:25)
[2017-08-11 06:14] LABS: ABS Basophils 0 10^3/ul (0-0.2); ABS Eosinophils 0.1 10^3/ul (0-0.6); ABS Lymphocytes 0.9 10^3/ul (1.0-4.8); ABS Monocytes 0.7 10^3/ul (0-0.8); ABS Neutrophils 3.5 10^3/ul (1.5-7.7); ABS Nucleated RBC 0 10^3/ul; Eosinophil % 1.8 % (0-6); Hematocrit 36 % (42-52); Hemoglobin 11.8 g/dl (14.0-18.0); Lymphocyte % 17.4 % (25-47); Mean Corpuscular HGB Conc 33 g/dl (31-36); Mean Corpuscular Hemoglobin 29 pg (27-31); Mean Corpuscular Volume 88 fL (80-94); Mean Platelet Volume 7.7 um3 (7.4-10.4); Nucleated Red Blood Cells % 0.1; Platelet Count 156 10^3/ul (150-450); Red Blood Count 4.08 10^6/ul (4.0-5.4); Red Cell Distribution Width 17 % (10.5-15); White Blood Count 5.2 10^3/ul (3.5-10.8)
[2017-08-11 06:37] LABS: EGFR Non-African American 78.8 (>60)
--- NOTE | 2017-08-11 08:41 | DS ---
- Discharge Summary ADMIT DATE: 08/09/2017 DISCHARGE DATE: 08/11/2017 DISCHARGE DIAGNOSIS: 1. pancreatitis 2. ileus 3. metastatic pancreatic cancer DISCHARGE MEDICATIONS: Home Medications Medication Instructions Recorded Confirmed Type Prochlorperazine TAB* [Compazine 10 mg PO Q6H PRN 03/02/16 08/09/17 History Tab*] LORazepam TAB(*) [Ativan 0.5 MG 0.5 mg PO Q4H PRN 11/24/16 08/09/17 History TAB (*)] Pancrelipase (NF) [Creon (NF)] 48,000 units PO TID WITH MEALS 11/24/16 08/09/17 History ValACYclovir (*) [Valtrex 500 mg 500 mg PO BID PRN 11/24/16 08/09/17 History (*)] DOXYcycline CAP(*) [DOXYcycline 100 mg PO DAILY 08/09/17 08/09/17 History 100MG CAP(*)] Oxycodone HCl [Oxycodone HCl ER] 20 mg PO TID 08/09/17 08/09/17 History DISCHARGE FOLLOW UP: 1. chemotherapy 08/15 at 12:30 pm HOSPITAL COURSE: Luis was admitted with nausea, vomiting and abdominal pain. Imaging revealed suggestion of an early ileus, with slight progression of his liver lesion. His lipase was elevated. He was treated with bowel rest and improved. He did have a bowel movement this am. He is very anxious to go home, to the point of almost signing out this am. He did agree to having breakfast and waiting 3-4 hours and if no recurrent abdominal pain or vomiting, discharging to home. We discussed making sure that he takes a bowel regimen with his narcotics. He will be scheduled for his delayed chemotherapy on Tuesday. >30mins spent >50% in face to face counseling
[2017-08-11] MEDS: oxyCODONE SR TAB(*) 20 MG TAB.SR PO SCH (09:09)
[2017-08-11 11:47] VITALS: BP 149/77
--- NOTE | 2017-08-11 20:58 | ED ---
Diaz Pelletier Angela, scribed for Darrel Gordon MD on 08/09/17 at 1106 . Abdominal Pain/Male - HPI Summary HPI Summary: This pt is a 52 y/o male, with hx of pancreatic CA, presenting to [facility] c/o abdominal pain x3 days. Pt is currently on chemotherapy for pancreatic cancer. He describes his abd pain as diffuse and severe. Pt rates his pain 10 out of 10 in severity. Pt additionally reports nausea and vomiting. Denies diarrhea, constipation, chest pain, SOB. His oncologist is Dr. Colon. - History of Current Complaint Chief Complaint: EDAbdPain Stated Complaint: ABD PAIN Time Seen by Provider: 08/09/17 10:23 Hx Obtained From: Patient Onset/Duration: Lasting Days, Still Present Timing: Lasting Days Severity Currently: Severe Pain Intensity: 10 Pain Scale Used: 0-10 Numeric Location: Diffuse Radiates: No Aggravating Factor(s): Nothing Alleviating Factor(s): Nothing Associated Signs And Symptoms: Positive: Nausea, Vomiting. Negative: Fever, Chest Pain, Constipation, Diarrhea - Allergies/Home Medications Allergies/Adverse Reactions: Allergies Allergy/AdvReac Type Severity Reaction Status Date / Time nabumetone Allergy Hives Verified 05/27/17 09:10 Home Medications: Home Medications DOXYcycline CAP(*) [DOXYcycline 100MG CAP(*)] 100 mg PO DAILY 08/09/17 [History Confirmed 08/09/17] Oxycodone HCl [Oxycodone HCl ER] 20 mg PO TID 08/09/17 [History Confirmed ] PMH/Surg Hx/FS Hx/Imm Hx Endocrine/Hematology History: Denies: Hx Diabetes, Hx Systemic Lupus Erythematosus, Hx Thyroid Disease Cardiovascular History: Denies: Hx Congestive Heart Failure, Hx Hypertension Respiratory History: Denies: Hx Asthma, Hx Chronic Obstructive Pulmonary Disease (COPD) GI History: Reports: Hx Gastroesophageal Reflux Disease - daily med, Hx Irritable Bowel - recent dx (may be r/t anxiety per md), Other GI Disorders - pancreatic cancer Denies: Hx Ulcer History: Denies: Hx Dialysis, Hx Renal Disease Musculoskeletal History: Reports: Hx Tendonitis - BILATERAL ELBOWS - some improvement Denies: Hx Rheumatoid Arthritis Sensory History: Reports: Hx Contacts or Glasses - readers Denies: Hx Cataracts, Hx Eye Injury, Hx Eye Prosthesis, Hx Glaucoma, Hx Legally Blind, Hx Macular Degeneration, Hx Vision Problem, Hx Deafness, Hx Hearing Aid, Hx Hearing Problem, Other Sensory Impairments Opthamlomology History: Reports: Hx Contacts or Glasses - readers Denies: Hx Cataracts, Hx Eye Injury, Hx Eye Prosthesis, Hx Glaucoma, Hx Legally Blind, Hx Macular Degeneration, Hx Vision Problem, Other Sensory Impairments Neurological History: Reports: 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 PANCREATIC CANCER Hx Chemotherapy: Yes - last time 05/19/17 Hx Radiation Therapy: No Hx Palliative Cancer Treatment: No - Surgical History Surgery Procedure, Year, and Place: Appendectomy 1979 [place] [facility] [place] [facility] [place]. [facility] liver biopsy 10/2014 @ [facility]. [place] [facility] [place] removed from face, back , shoulder 2001 [place]. [place] [facility] [place] [facility] [place] [facility] [place]x Anesthesia Reactions: No Infectious Disease History: Yes Infectious Disease History: Denies: Hx Hepatitis, Hx Human Immunodeficiency Virus (HIV), Traveled Outside the [place] in Last 30 Days - Family History Known Family History: Positive: Other - Positive adverse reaction to anesthesia -- ileac condition - Social History Alcohol Use: None Hx Substance Use: Yes Substance Use Type: Reports: Marijuana, Prescribed Substance Use Comment - Amount & Last Used: medical marijuana - last used nov 2016 Hx Tobacco Use: Yes Smoking Status (MU): Light Every Day Tobacco Smoker Type: Cigarettes Amount Used/How Often: 1/2 ppd for 35 years - pt has nicotine patch but has not started using yet Length of Time of Smoking/Using Tobacco: 30 Have You Smoked in the Last Year: Yes Review of Systems Negative: Fever ENT: Negative Cardiovascular: Negative Positive: Abdominal Pain, Vomiting, Nausea. Negative: Diarrhea, Other - constipation Skin: Negative Neurological: Negative All Other Systems Reviewed And Are Negative: Yes Physical Exam - Summary Physical Exam Summary: VITAL SIGNS: Reviewed. GENERAL: Patient is a well-developed and nourished male who is in severe distress secondary to abdominal pain. HEAD AND FACE: Normocephalic and atraumatic. EYES: PERRLA, EOMI x 2, No injected conjunctiva. EARS: Hearing grossly intact. Ear canals and tympanic membranes are WNL. MOUTH: Oropharynx within normal limits. NECK: Supple, trachea is midline, no adenopathy, no JVD. CHEST: Symmetric, no tenderness at palpation LUNGS: Clear to auscultation bilaterally. No wheezing or crackles. CVS: RRR, S1 and S2 present, no murmurs or gallops appreciated. ABDOMEN: Soft. Diffuse abdominal tenderness. No signs of distention. Positive bowel sounds. No rebound no guarding, and no masses palpated. No abdominal bruit or pulsations. EXTREMITIES: FROM in all major joints, no edema, no cyanosis or clubbing. NEURO: Alert and oriented x 3. No acute neurological deficits. Speech is normal. SKIN: Dry and warm Triage Information Reviewed: Yes Vital Signs On Initial Exam: Initial Vitals Temp Pulse Resp BP Pulse Ox 97.8 F 66 16 191/95 99 08/09/17 09:53 08/09/17 09:53 08/09/17 09:53 08/09/17 09:53 08/09/17 09:53 Vital Signs Reviewed: Yes Diagnostics - Vital Signs Vital Signs Temp Pulse Resp BP Pulse Ox 08/09/17 10:45 53 29 100 08/09/17 10:09 57 34 201/103 98 08/09/17 09:53 97.8 F 66 16 191/95 99 - Laboratory Result Diagrams: 08/09/17 11:21 08/09/17 11:21 Lab Statement: Any lab studies that have been ordered have been reviewed, and results considered in the medical decision making process. - CT Abdomen/Pelvis CT CT Interpretation: Positive (See Comments) - IMPRESSION: 1. There is a lesion in the left hepatic lobe which appears larger than at the time of recent imaging. 2. Atrophic pancreas with dilated pancreatic duct, unchanged. 3. Enlarged aortocaval lymph node appearing slightly larger. 4. Mildly prominent small bowel loops appear fluid-filled. The findings suggest localized ileus. Dr. Gordon has reviewed this radiology report. CT Interpretation Completed By: Radiologist - EKG 10:33 Cardiac Rate: Bradycardia - at 51 bpm EKG Rhythm: Sinus Bradycardia EKG Interpretation: No ST elevations. Normal axis. Re-Evaluation - Re-Evaluation First Eval Re-Evaluation Time: 12:30 Change: Worse Comment: Pt is requesting more pain medications. He would like to leave AMA. Will call his oncologist, Dr. Colon. Second Eval Re-Evaluation Time: 15:40 Comment: LIZETT Paredes from Dr. Colon's services in to see the pt. Abdominal Pain Fem Course/Dx - Course Assessment/Plan: Pt is a 52 y/o male, with hx of pancreatic CA, presenting to [facility] c/o abdominal pain x3 days. Pt is currently on chemotherapy for pancreatic cancer. He describes his abd pain as diffuse and severe. Pt rates his pain 10 out of 10 in severity. Pt additionally reports nausea and vomiting. Denies diarrhea, constipation, chest pain, SOB. His oncologist is Dr. Colon. Test results without any significant abnormalities except for glucose of 125, lipase of 276. In the ED course the pt was given IV fluids, morphine for the pain, Reglan for nausea and vomiting. Abdomen/Pelvis CT impression: 1. There is a lesion in the left hepatic lobe which appears larger than at the time of recent imaging. 2. Atrophic pancreas with dilated pancreatic duct, unchanged. 3. Enlarged aortocaval lymph node appearing slightly larger. 4. Mildly prominent small bowel loops appear fluid-filled. The findings suggest localized ileus. I discussed the case with Dr. Colon, oncologist, who accepted the pt for admission. I discussed all the findings and test results with the patient. Pt is hemodynamically stable, alert and oriented x3. - Diagnoses Provider Diagnoses: Ileus, Pancreatitis, Abdominal pain - Provider Notifications Discussed Care Of Patient With: Cornelius Colon Time Discussed With Above Provider: 12:47 Instructed by Provider To: Other - I discussed pt care with Dr. Colon, oncologist , who wants the CT abd/pel done and he will come see the pt in the ED. Discharge - Sign-Out/Discharge Documenting (check all that apply): Discharge/Admit/Transfer - Admit - Discharge Plan Condition: Stable Disposition: ADMITTED TO [facility] Referrals: Cornelius Colon MD [Primary Care Provider] - The documentation as recorded by the Diaz blackman Angela accurately reflects the service I personally performed and the decisions made by me, Darrel Gordon MD.
== END 2017-08-11 11:35 | disposition home or self-care (01) | DRG 282 ==
LOC: ED 09:47 → MED 16:36
PROVIDERS: ADMIT Internal Medicine Hematology & Oncology; ATTEND Internal Medicine Hematology & Oncology
DX: K85.90 Acute pancreatitis without necrosis or infection, unspecified (principal); K56.7 Ileus, unspecified; C25.9 Malignant neoplasm of pancreas, unspecified; C79.9 Secondary malignant neoplasm of unspecified site; C25.7 Malignant neoplasm of other parts of pancreas; C77.2 Secondary and unspecified malignant neoplasm of intra-abdominal lymph nodes; F41.9 Anxiety disorder, unspecified; Z88.8 Allergy status to other drugs, medicaments and biological substances; K21.9 Gastro-esophageal reflux disease without esophagitis; K64.9 Unspecified hemorrhoids; F17.210 Nicotine dependence, cigarettes, uncomplicated; F12.90 Cannabis use, unspecified, uncomplicated; Z80.3 Family history of malignant neoplasm of breast; K58.9 Irritable bowel syndrome, unspecified; F32.9 Major depressive disorder, single episode, unspecified; Z85.828 Personal history of other malignant neoplasm of skin; G62.9 Polyneuropathy, unspecified; I10 Essential (primary) hypertension
CPT/HCPCS: 36415; 74177; 80048; 80053; 81003; 81015; 82150; 83605; 83690; 83735; 83880; 84484; 85025; 86140; 87040; 93005; 99222; 99232; 99239; 99284; A9270-GY; J0780; J1642; J1650; J2270; Q9967

== ENCOUNTER 2018-01-04 13:53 | Observation (INO) | payer MEDICARE, BC ==
[2018-01-09 08:02] LABS: ABS Basophils 0 10^3/ul (0-0.2); ABS Eosinophils 0.1 10^3/ul (0-0.6); ABS Lymphocytes 0.7 10^3/ul (1.0-4.8); ABS Monocytes 1.2 10^3/ul (0-0.8); ABS Neutrophils 4.5 10^3/ul (1.5-7.7); ABS Nucleated RBC 0 10^3/ul; Eosinophil % 0.8 % (0-6); Hematocrit 31 % (42-52); Hemoglobin 10.3 g/dl (14.0-18.0); Lymphocyte % 11.1 % (25-47); Mean Corpuscular HGB Conc 33 g/dl (31-36); Mean Corpuscular Hemoglobin 30 pg (27-31); Mean Corpuscular Volume 92 fL (80-94); Mean Platelet Volume 7.7 um3 (7.4-10.4); Nucleated Red Blood Cells % 0; Platelet Count 155 10^3/ul (150-450); Red Blood Count 3.38 10^6/ul (4.00-5.40); Red Cell Distribution Width 16 % (10.5-15); White Blood Count 6.6 10^3/ul (3.5-10.8)
[2018-01-09 08:17] LABS: EGFR Non-African American 93.9 (>60)
[2018-01-09] MEDS ORDERED: diPHENhydraMINE IV* 50 MG/ML 1 ml VIAL (BENADRYL) IV ONE (09:00)
[2018-01-09] MEDS ORDERED: Palonosetron* 0.25 MG in PREMIX* 0 ML IV ONE (09:00)
[2018-01-09] MEDS ORDERED: DEXAMETHASONE IVPB ONE (09:00)
[2018-01-09] MEDS ORDERED: Famotidine IV * 20 MG in PREMIX* 0 ML IV ONE (09:00)
--- NOTE | 2018-01-09 09:08 | PN ---
Progress Note - Progress Note Date of Service: 01/09/18 SOAP: Subjective: []Feeling fine. Abdominal pain over weekend but not sever. Not eating well. No fevers, SOB. Oxaliplatin 0.015 mg/ Dextrose 101.5 mls @ 101.5 mls/hr IVPB ONCE ONE Stop: 01/09/18 10:29 Oxaliplatin 0.15 mg/ Dextrose 101.5 mls @ 101.5 mls/hr IVPB ONCE ONE Stop: 01/09/18 11:29 Oxaliplatin 1.5 mg/ Dextrose 101.5 mls @ 101.5 mls/hr IVPB ONCE ONE Stop: 01/09/18 12:29 Objective: []VSS HEENT - think Chest port in place CTA RRR s1S2 +BS NT ND Assessment: []52 year old on salvage chemotherapy here for Oxaliplatin desensitization. Plan: []1. Proceed per protocol.
[2018-01-09] MEDS ORDERED: D5W IVPB ONE ×5 (09:30→14:00)
[2018-01-09] MEDS ORDERED: OXALIPLATIN FOR DESENSIT C IVPB ONE (09:30)
[2018-01-09] MEDS ORDERED: methylPREDNISolone 125 MG* 2 ML VIAL IV PRN (09:36)
[2018-01-09] MEDS ORDERED: Famotidine IV* 10 MG/ML 2 ML (20 mg) IV SLOW PU PRN (09:37)
[2018-01-09] MEDS ORDERED: OXALIPLATIN FOR DESENSIT B IVPB ONE (10:30)
[2018-01-09] MEDS ORDERED: EPINEPHrine PEN ADULT(NF) 0.3 MG SYRINGE IM PRN (10:33)
[2018-01-09] MEDS ORDERED: OXALIPLATIN FOR DESENSIT A IVPB ONE (11:30)
[2018-01-09] MEDS ORDERED: OXALIPLATIN IVPB ONE ×2 (13:00→14:00)
[2018-01-09] MEDS: PANCRELIPASE 24000 UNIT PO SCH ×2 (13:06→19:10)
[2018-01-09] MEDS ORDERED: Leucovorin Calcium* 35 MG in D5W 250 ML BAG* 250 ML IVPB ONE (16:00)
[2018-01-09 16:14] VITALS: BP 115/60
[2018-01-09] MEDS ORDERED: FLUOROURACIL IVPB ONE (18:00)
[2018-01-09] MEDS ORDERED: NS 0.9% IVPB ONE (18:00)
--- NOTE | 2018-01-10 14:58 | DS ---
- Discharge Summary Admission Date: 01/09/18 Discharge Date: 01/09/18 Discharge Diagnosis: 1. Pancreatic Cancer: complete C3 mFOLFOX @ home Hospital Course: Please see admission note for full H&P, however briefly, Mr. Sandhu is well known to our service due to his unfortunate diagnosis of advanced pancreatic cancer. He recently start mFOLFOX, C1 12/13, and experienced an infusion reaction with C2 during Oxaliplatin infusion requiring desensitization with Cycle 3. He presented to the hospital today for cycle 3 with prolonged Oxaliplatin infusion and telemetry monitoring. He received his treatment without incident and will be d/c'd home for completion of his cont. 5FU infusion. He will resume all home meds and will return to the office on 01/11 for unhook and f/u as scheduled.
== END 2018-01-09 19:12 | disposition home or self-care (01) ==
LOC: MEDTELE 01-09 07:11 → INTOOBSV 01-09 07:11
PROVIDERS: ADMIT Internal Medicine Hematology & Oncology; ATTEND Internal Medicine Hematology & Oncology
DX: C25.0 Malignant neoplasm of head of pancreas (principal); K21.9 Gastro-esophageal reflux disease without esophagitis; Z79.899 Other long term (current) drug therapy; F17.210 Nicotine dependence, cigarettes, uncomplicated; Z80.3 Family history of malignant neoplasm of breast
CPT/HCPCS: 36415; 80053; 83735; 85025; 86301; 96365; 96366; 96372; 96375; 99219; G0378; J0640; J1100; J1200; J1642; J2469; J9190; J9263